=== PATIENT | male | born 1970 | race Caucasian/White ===

== ENCOUNTER 2020-04-24 20:10 | Emergency (ER) | payer BC | END 2020-04-24 20:35 | disposition home or self-care (01) | LOC: JVIRT 20:10 | DX: Z03.818 Encounter for observation for suspected exposure to other biological agents ruled out (principal) | CPT/HCPCS: C9803; G2012-GT; U0003 ==

== ENCOUNTER 2020-05-05 19:26 | Emergency (ER) | payer BC | END 2020-05-05 19:58 | disposition home or self-care (01) | LOC: JVIRT 19:26 | DX: Z11.59 Encounter for screening for other viral diseases (principal) | CPT/HCPCS: C9803; Q3014-GT; U0003 ==

== ENCOUNTER 2020-05-31 10:50 | Emergency (ER) | payer BC | END 2020-05-31 11:36 | disposition home or self-care (01) | LOC: JVIRT 10:50 | DX: Z11.59 Encounter for screening for other viral diseases (principal) | CPT/HCPCS: C9803; Q3014-GT; U0003 ==

== ENCOUNTER 2020-07-27 17:20 | Emergency (ER) | payer BC | END 2020-07-27 17:59 | disposition home or self-care (01) | LOC: JVIRT 17:20 | DX: R51.9 Headache, unspecified (principal); Z11.52 Encounter for screening for COVID-19 | CPT/HCPCS: C9803; G2251-GT; U0003 ==